=== PATIENT | female | born 1965 | race Caucasian/White ===

== ENCOUNTER → 2023-06-15 | Emergency (ER) | payer BC ==
[~2023-06-15] MED LIST: ASPIRIN 81 MG CHEWABLE TABLET ONE; CALCIUM GLUCONATE 1 GM IVPB 2 GM/100 ML BAG IV ONE; D5 0.9 NS 1,000 ML IV ONE; FAMOTIDINE 20 MG/2 ML VIAL IV ONE; NA CHLORIDE 0.9% 1,000 ML ONE; ONDANSETRON 4 MG/2 ML VIAL ONE
[2023-06-15 07:57] LABS: Absolute Lymphocytes (CBC) 0.9 K/uL (0.7-4.9); Lymphocytes % 62.7 % (15.3-44.8); MCV 95.2 fL (80-100); MPV 7.8 fL (7.6-11.3); Platelets 151 thou/uL (152-406); RBC Red Blood Cell Count 3.89 M/uL (3.86-4.86)
[2023-06-15 08:14] LABS: Albumin 2.3 g/dL (3.4-5.0); Bilirubin Total 1.1 mg/dL (0.2-1.0); Potassium 3.6 mEq/L (3.5-5.1); Protein, Total 5.4 g/dL (6.4-8.2)
[2023-06-15 09:00] LABS: Blood Morphology Comment NOT SEEN (NOT SEEN); Platelet Estimate ADEQ; Smudge Cells PRESENT
--- NOTE | 2023-06-15 10:16 | EDPHYS ---
Physician Documentation [facility] Name: Melyssa Almodovar Age: 58 yrs Sex: Female : 1965 Arrival Date: 06/15/2023 Time: 06:39 Bed 18 Private MD: ED Physician Nico Bustillo HPI: 06/15 07:07 This 58 yrs old Female presents to ER via EMS with complaints of nausea, weakness, rn dehydration. 07:07 The patient presents to the emergency department with nausea. Onset: The rn symptoms/episode began/occurred 1 week(s) ago. Possible causes: Chemotherapy. The symptoms are aggravated by food , The symptoms are alleviated by nothing. Severity of symptoms: At their worst the symptoms were moderate in the emergency department the symptoms are unchanged. The patient has experienced similar episodes in the past. 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 Due to pain recently patient was started on chemotherapy at [facility]. Patient reports moderate nausea but no vomiting. Not eating or drinking much. No new abdominal pain. No new headache or focal neurological deficit. Patient reports he takes Zofran and Phenergan with minimal response.. Historical: - Allergies: 06:50 NKDA; jj7 - PMHx: 06:50 BREAST CANCER; jj7 - PSHx: 06:50 LEFT HIP REPLACEMENT; TRANSFLAPS FOR HER BREAST; BILAT MASTECTOMY; jj7 - Immunization history:: Adult Immunizations not up to date, Client reports having NOT received the Covid vaccine. Flu vaccine is not up to date. - Social history:: Smoking status: Patient denies any tobacco usage or history of. Patient/guardian denies using alcohol, street drugs. - Family history:: not pertinent. - Hospitalizations: : No recent hospitalization is reported. ROS: 07:07 Constitutional: Negative for fever, chills, and weight loss, Neck: Negative for injury, rn pain, and swelling, Cardiovascular: Negative for chest pain, palpitations, and edema, Respiratory: Negative for shortness of breath, cough, wheezing, and pleuritic chest pain, Abdomen/GI: Negative for abdominal pain, diarrhea, and constipation, MS/Extremity: Negative for injury and deformity, Skin: Negative for injury, rash, and discoloration, Neuro: Negative for headache, numbness, tingling, and seizure, Exam: 07:07 Constitutional: This is a well developed, well nourished patient who is awake, alert, rn and in no acute distress. Head/Face: Normocephalic, atraumatic. ENT: Dry mucous membranes Neck: Trachea midline. No Meningismus. Cardiovascular: Tachycardic, regular. No pulse deficits. Respiratory: No increased work of breathing, no retractions or nasal flaring. Abdomen/GI: Soft, non-tender, nondistended Skin: Warm, dry MS/ Extremity: Pulses equal, no cyanosis. Neuro: Awake and alert, GCS 15, equal strength throughout. Sensation grossly intact. Moves all 4 extremities. Vital Signs: 06:40 BP 145 / 96; Pulse 110; Resp 18; Temp 98; Pulse Ox 99% ; Weight 88.45 kg; Height 5 ft. jj7 5 in. ; Pain 0/10; 07:14 BP 138 / 85; Pulse 107; Resp 18; Pulse Ox 99% on R/A; ld1 07:32 BP 138 / 85; Pulse 94; Resp 18; Pulse Ox 98% on R/A; ld1 09:56 BP 146 / 85; Pulse 119; Resp 18; Pulse Ox 100% on R/A; iw 10:10 Pulse 96; rn 11:06 BP 142 / 79; Pulse 101; Resp 18; Pulse Ox 100% on R/A; ld1 06:40 Body Mass Index 32.45 (88.45 kg, 165.1 cm) jj7 06:40 Pain Scale: Adult jj7 MDM: 06:58 Patient medically screened. rn 10:10 Differential diagnosis: gastritis, viral gastroenteritis, gastroenteritis, Electrolyte rn disorder, dehydration, chemo reaction. Data reviewed: vital signs, nurses notes, lab test result(s), and as a result, I will discharge patient. Counseling: I had a detailed discussion with the patient and/or guardian regarding the historical points, exam findings, and any diagnostic results supporting the discharge/admit diagnosis, lab results, the need for outpatient follow up, to return to the emergency department if symptoms worsen or persist or if there are any questions or concerns that arise at home. Special discussion: I discussed with the patient/guardian in detail that at this point there is no indication for admission to the hospital. It is understood, however, that if the symptoms persist or worsen the patient needs to return immediately for re-evaluation. Based on the history and exam findings, there is no indication for further emergent testing or inpatient evaluation. I discussed with the patient/guardian the need to see the engine assembler/oncologist for further evaluation of the symptoms. I discussed with the patient/guardian the need to see the primary care provider for further evaluation of the symptoms. ED course: Patient feels much better, heart rate down to the 90s, well-hydrated. Given calcium IV. Will discharge home with return precautions. Needs to follow-up with her oncologist.. 06/15 07:05 Order name: CBC with Diff; Complete Time: 09:01 rn 06/15 07:05 Order name: CMP; Complete Time: 08:19 rn 06/15 07:05 Order name: Lipase; Complete Time: 08:19 rn 06/15 08:03 Order name: Manual Differential; Complete Time: 09:01 EDMS 06/15 07:06 Order name: IV Saline Lock; Complete Time: 07:32 rn 06/15 07:06 Order name: Labs collected and sent; Complete Time: 07:36 rn Administered Medications: 07:32 Drug: NS 0.9% IV 1000 ml IV at 1 bolus Per protocol; 1000 mL bolus Route: IV; Rate: 1 ld1 bolus; Site: left hand; 07:32 Drug: Famotidine IVP 20 mg IVP once; dilute with 10 mL 0.9% NaCl; give over 2 minutes ld1 Route: IVP; Site: left hand; 07:32 Drug: Ondansetron IVP 4 mg IVP once; over 2 minutes Route: IVP; Site: left hand; ld1 08:27 CANCELLED (Duplicate Order): aspirinchewable tablet 324 mg PO once; 81 mg tablets x 4 rn 08:41 Drug: Calcium Gluconate IVPB 2 grams IVPB once over 60 mins; (mix in NS 100 mL) Route: ld1 IVPB; Infused Over: 60 mins; Site: right antecubital; 09:56 Drug: D5-NS IV 1000 ml IV at 150 ml/hr continuous Route: IV; Rate: 150 ml/hr; Site: iw left hand; Disposition Summary: 06/15/23 10:15 Discharge Ordered Notes: Location: Home rn Problem: new rn Symptoms: have improved rn Condition: Stable rn Diagnosis - Nausea rn - Dehydration rn - Hypocalcemia rn Followup: rn - With: Private Physician - When: As needed - Reason: Recheck today's complaints, Re-evaluation by your physician Discharge Instructions: - Discharge Summary Sheet rn - Dehydration, Adult rn - Nausea, Adult rn - Hypocalcemia, Adult rn Forms: - Medication Reconciliation Form rn - Thank You Letter rn - Antibiotic government contracts manager - Prescription Opioid Use rn - Patient Portal Instructions rn - Leadership Thank You Letter rn Signatures: Dispatcher [employer] Darlene Coulter RN Nico Winchester MD MD rn Sims, Lauren, RN RN ld1 Reese Geronimo RN RN jj7 Corrections: (The following items were deleted from the chart) 08:27 08:27 Aspirin PO Chewable Tablet 324 mg PO once; 81 mg tablets x 4 ordered. rn rn
--- NOTE | 2023-06-15 10:16 | ER ---
Nurse's Notes [facility] Name: Melyssa Almodovar Age: 58 yrs Sex: Female : 1965 Arrival Date: 06/15/2023 Time: 06:39 Bed 18 Private MD: Diagnosis: Nausea;Dehydration;Hypocalcemia Presentation: 06/15 06:40 Chief complaint: Patient states: NAUSEA X 2 DAYS EMS states: EMS STATES PT STARTED jj7 CHEMO LAST WEEK AND NOW HAVING NAUSEA X2 DAYS. ORAL ZOFRAN IS NOT HELPING. Coronavirus screen: At this time, the client does not indicate any symptoms associated with coronavirus-19. Ebola Screen: No symptoms or risks identified at this time. Initial Sepsis Screen: Does the patient meet any 2 criteria? HR > 90 bpm. Yes Does the patient have a suspected source of infection? No. Patient's initial sepsis screen is negative. Risk Assessment: Do you want to hurt yourself or someone else? Patient reports no desire to harm self or others. 06:40 Method Of Arrival: EMS: [facility] jj7 06:40 Acuity: RIMMA 3 jj7 Triage Assessment: 06:50 General: Appears in no apparent distress. uncomfortable, Behavior is calm, cooperative, jj7 appropriate for age. Pain: Denies pain. GI: Reports nausea. Historical: - Allergies: 06:50 NKDA; jj7 - PMHx: 06:50 BREAST CANCER; jj7 - PSHx: 06:50 LEFT HIP REPLACEMENT; TRANSFLAPS FOR HER BREAST; BILAT MASTECTOMY; jj7 - Immunization history:: Adult Immunizations not up to date, Client reports having NOT received the Covid vaccine. Flu vaccine is not up to date. - Social history:: Smoking status: Patient denies any tobacco usage or history of. Patient/guardian denies using alcohol, street drugs. - Family history:: not pertinent. - Hospitalizations: : No recent hospitalization is reported. Screenin:54 [facility] ED Fall Risk Assessment (Adult) History of falling in the last 3 months, jj7 including since admission No falls in past 3 months (0 pts) Confusion or Disorientation No (0 pts) Intoxicated or Sedated No (0 pts) Impaired Gait No (0 pts) Mobility Assist Device Used No (0 pt) Altered Elimination No (0 pt) Score/Fall Risk Level 0 - 2 = Low Risk Oriented to surroundings, Maintained a safe environment, Educated pt \T\ family on fall prevention, incl call for assistance when getting out of bed. Abuse screen: Denies threats or abuse. Nutritional screening: No deficits noted. Tuberculosis screening: No symptoms or risk factors identified. Assessment: 07:32 General: Appears in no apparent distress. comfortable, Behavior is calm, cooperative, ld1 appropriate for age. Pain: Denies pain. Neuro: Level of Consciousness is awake, alert, obeys commands, Oriented to person, place, time, situation. Cardiovascular: Capillary refill < 3 seconds Patient's skin is warm and dry. Respiratory: Airway is compromised Respiratory effort is even, unlabored. GI: Abdomen is round non-distended. GI: Reports nausea, vomiting. : No signs and/or symptoms were reported regarding the genitourinary system. EENT: No signs and/or symptoms were reported regarding the EENT system. Derm: No signs and/or symptoms reported regarding the dermatologic system. Musculoskeletal: No signs and/or symptoms reported regarding the musculoskeletal system. Vital Signs: 06:40 BP 145 / 96; Pulse 110; Resp 18; Temp 98; Pulse Ox 99% ; Weight 88.45 kg; Height 5 ft. jj7 5 in. ; Pain 0/10; 07:14 BP 138 / 85; Pulse 107; Resp 18; Pulse Ox 99% on R/A; ld1 07:32 BP 138 / 85; Pulse 94; Resp 18; Pulse Ox 98% on R/A; ld1 09:56 BP 146 / 85; Pulse 119; Resp 18; Pulse Ox 100% on R/A; iw 10:10 Pulse 96; rn 11:06 BP 142 / 79; Pulse 101; Resp 18; Pulse Ox 100% on R/A; ld1 06:40 Body Mass Index 32.45 (88.45 kg, 165.1 cm) jj7 06:40 Pain Scale: Adult j7 ED Course: 06:46 Patient arrived in ED. jj7 06:50 Triage completed. jj7 06:50 Arm band placed on right wrist. Patient placed in an exam room, on a stretcher. jj7 06:54 Patient has correct armband on for positive identification. Bed in low position. Call jj7 light in reach. Side rails up X2. Warm blanket given. 06:57 Inserted saline lock: 22 gauge in left hand, using aseptic technique. Blood collected. oe 06:58 Nico Bustillo MD is Attending Physician. rn 07:22 Meka Lerner, [place] is Primary Nurse. ld1 07:32 No provider procedures requiring assistance completed. ld1 11:06 IV discontinued, intact, bleeding controlled, No redness/swelling at site. ld1 Administered Medications: 07:32 Drug: NS 0.9% IV 1000 ml IV at 1 bolus Per protocol; 1000 mL bolus Route: IV; Rate: 1 ld1 bolus; Site: left hand; 07:32 Drug: Famotidine IVP 20 mg IVP once; dilute with 10 mL 0.9% NaCl; give over 2 minutes ld1 Route: IVP; Site: left hand; 07:32 Drug: Ondansetron IVP 4 mg IVP once; over 2 minutes Route: IVP; Site: left hand; ld1 08:27 CANCELLED (Duplicate Order): aspirinchewable tablet 324 mg PO once; 81 mg tablets x 4 rn 08:41 Drug: Calcium Gluconate IVPB 2 grams IVPB once over 60 mins; (mix in NS 100 mL) Route: ld1 IVPB; Infused Over: 60 mins; Site: right antecubital; 09:56 Drug: D5-NS IV 1000 ml IV at 150 ml/hr continuous Route: IV; Rate: 150 ml/hr; Site: iw left hand; Medication: 06:54 VIS not applicable for this client. jj7 Outcome: 10:15 Discharge ordered by . rn 11:06 Discharged to home via wheelchair, with family, ld1 11:06 Condition: stable 11:06 Discharge instructions given to patient, family, Instructed on discharge instructions, follow up and referral plans. Demonstrated understanding of instructions, follow-up care, 11:06 Patient left the ED. ld1 Signatures: Darlene Rolon RN Nico Winchester MD MD rn Espinosa, [place] oe Sims, Lauren, [place] BAR[place]ONA ld1 Reese Geronimo RN RN jj7
[2023-06-15 11:23] VITALS: BP 142/79; TEMP 98; O2SAT 100
== END ==
LOC: EDBD 06:39 → ER 06:39
DX: E86.0 Dehydration (principal); E83.51 Hypocalcemia; Z28.310 Unvaccinated for COVID-19; Z85.3 Personal history of malignant neoplasm of breast; Z90.13 Acquired absence of bilateral breasts and nipples; Z96.642 Presence of left artificial hip joint
CPT/HCPCS: 36415; 80053; 83690; 85025; 99284; J0612; J2405; J7030; J7042